=== PATIENT | male | born 1950 | race Caucasian/White ===

== ENCOUNTER → 2021-08-13 | Day surgery (SDC) | payer OTHER ==
[~2021-08-13] MED LIST: ABILIFY20 MG PO; ASPIR 8181 MG PO; CATAPRES 0.1MG0.1 MG PO; EFFEXOR 25 MG T25 MG PO; HYDROCHLOROTHIA25 MG PO; HYGROTON TAB 2525 MG PO; IMDUR ER TAB 3030 MG PO; LIPITOR80 MG PO; LISINOPRIL20 MG PO; MYSOLINE50 MG PO; NITROSTAT 0.40.4 MG SL; PAXIL40 MG PO; REMERON15 MG PO; SIMVASTATIN40 MG PO; TRAZODONE HCL100 MG PO; VITAMIN D31000 UNIT PO; ZANTAC150 MG PO; ZYLOPRIM 100 M100 MG PO
== END | disposition home or self-care (01) ==
LOC: OR 07:22
DX: C32.0 Malignant neoplasm of glottis (principal); J34.89 Other specified disorders of nose and nasal sinuses; I10 Essential (primary) hypertension; E78.00 Pure hypercholesterolemia, unspecified; G25.81 Restless legs syndrome; I25.2 Old myocardial infarction; Z20.822 Contact with and (suspected) exposure to COVID-19; F32.A Depression, unspecified; F41.9 Anxiety disorder, unspecified; F17.210 Nicotine dependence, cigarettes, uncomplicated
CPT/HCPCS: 93005; J2001; J2250; J2370; J2405; J2704; J3010; J7120

== ENCOUNTER → 2021-08-20 | Outpatient (CLI) | payer OTHER | LOC: CT 12:25 | DX: J38.3 Other diseases of vocal cords (principal); R49.0 Dysphonia; J43.9 Emphysema, unspecified; R91.8 Other nonspecific abnormal finding of lung field | CPT/HCPCS: 36415; 70491; 71260; 82565; 84520; Q9967 ==